=== PATIENT | female | born 1990 | race Caucasian/White ===

== ENCOUNTER 2018-08-13 10:05 | Emergency (ER) | payer OTHER ==
[~2018-08-13] VITALS: Ht 160 cm; Wt 79.0 kg
[2018-08-13 11:10] VITALS: BP 121/79
== END 2018-08-13 17:15 | disposition left against medical advice (07) ==
LOC: EDBD 10:05 → ER 10:05
DX: Z53.21 Procedure and treatment not carried out due to patient leaving prior to being seen by health care provider (principal)